=== PATIENT | male | born 1995 | race Caucasian/White ===

== ENCOUNTER → 2024-12-16 18:30 | Outpatient (ROUT) | payer OTHER, SELFPAY | PROVIDERS: Visit Provider Dermatology | DX: L02.821 Furuncle of head [any part, except face] (principal); L70.0 Acne vulgaris | CPT/HCPCS: 87070; 87075; 87147; 87205 ==

== ENCOUNTER → 2025-01-12 11:39 | Outpatient (CLI) | payer OTHER, SELFPAY ==
--- NOTE | 2025-01-12 11:41 | DI.RAD.S_ITS ---
PROCEDURE: XR KNEE RT 3V INDICATIONS: Right knee injury/pain TECHNIQUE: 3 views of the knee were acquired. COMPARISON: None. FINDINGS: Bones: No fractures or dislocations. No suspicious bony lesions. Soft tissues: There is a likely mild joint effusion. No suspicious soft tissue calcifications. IMPRESSION: A mild joint effusion. No focal bony abnormality is seen. If it would be helpful for clinical management decision making, please consider a dedicated, scheduled knee MRI for further evaluation (assuming that there is no contraindication). Dictated by: Festus Fuentes M.D. on 01/12/2025 at 11:17 Approved by: Festus Fuentes M.D. on 01/12/2025 at 11:18
== END ==
LOC: RAD 11:41
PROVIDERS: Referring Provider Physician Assistant Surgical; Visit Provider Physician Assistant Surgical
DX: S89.91XA Unspecified injury of right lower leg, initial encounter (principal); X58.XXXA Exposure to other specified factors, initial encounter
CPT/HCPCS: 73562

== ENCOUNTER → 2025-10-14 17:31 | Outpatient (ROUT) | payer OTHER, SELFPAY | PROVIDERS: Visit Provider Dermatology | DX: L03.90 Cellulitis, unspecified (principal); L65.9 Nonscarring hair loss, unspecified; L73.8 Other specified follicular disorders; Z79.899 Other long term (current) drug therapy | CPT/HCPCS: 87070; 87075; 87205 ==